=== PATIENT | male | born 1950 | race Caucasian/White ===

== ENCOUNTER → 2016-09-04 | Outpatient (CLI) | payer OTHER ==
[~2016-09-04] MED LIST: GADOBUTROL 10 ML VIAL IVP ONE
== END ==
LOC: FIMAGING 07:07
PROVIDERS: ATTEND Internal Medicine Hematology & Oncology
DX: Z12.89 Encounter for screening for malignant neoplasm of other sites (principal); Z85.07 Personal history of malignant neoplasm of pancreas; Z85.820 Personal history of malignant melanoma of skin
CPT/HCPCS: 70553; A9585

== ENCOUNTER → 2016-10-20 | Outpatient (CLI) | payer OTHER | LOC: FIMAGING 11:02 | PROVIDERS: ATTEND Family Medicine | DX: R05 Cough (principal); Q25.46 Tortuous aortic arch ==

== ENCOUNTER → 2016-11-17 | Outpatient (CLI) | payer OTHER | LOC: FIMAGING 06:49 | PROVIDERS: ATTEND Internal Medicine Hematology & Oncology | DX: R93.2 Abnormal findings on diagnostic imaging of liver and biliary tract (principal); I81 Portal vein thrombosis; C25.9 Malignant neoplasm of pancreas, unspecified; Z98.890 Other specified postprocedural states | CPT/HCPCS: 74183; A9585 ==

== ENCOUNTER → 2017-01-05 | Outpatient (CLI) | payer OTHER | LOC: CIMAGING 12:32 | PROVIDERS: ATTEND Nurse Practitioner | DX: R10.12 Left upper quadrant pain (principal); R14.0 Abdominal distension (gaseous); C25.9 Malignant neoplasm of pancreas, unspecified | CPT/HCPCS: 76705-PO ==

== ENCOUNTER → 2017-12-01 | Outpatient (CLI) | payer OTHER | LOC: FLAB 11:18 | PROVIDERS: ATTEND Surgery | DX: Z45.89 Encounter for adjustment and management of other implanted devices (principal) ==

== ENCOUNTER 2018-02-15 12:41 | Outpatient (CLI) | payer OTHER ==
[2018-02-15] MEDS ORDERED: diphenhydrAMINE 25 MG CAP PO ONE (13:30)
[2018-02-15] MEDS ORDERED: ACETAMINOPHEN 325 MG TAB PO ONE (13:30)
== END 2018-02-15 14:38 | disposition home or self-care (01) ==
LOC: FOBOP 12:41
PROVIDERS: ATTEND Internal Medicine Hematology & Oncology
PROC: 30233P1 Transfusion of Nonautologous Frozen Red Cells into Peripheral Vein, Percutaneous Approach (ICD-10-PCS; principal; 2018-02-15)
DX: C25.9 Malignant neoplasm of pancreas, unspecified (principal)
CPT/HCPCS: 36430; P9016

== ENCOUNTER → 2018-06-16 | Outpatient (CLI) | payer OTHER ==
[~2018-06-16] MED LIST changes: -GADOBUTROL 10 ML VIAL IVP ONE; +LIDOCAINE 1% 300 MG/30 ML SDV ONE
== END ==
LOC: FIMAGING 09:38
PROVIDERS: ATTEND Internal Medicine Hematology & Oncology
PROC: 0W9G3ZZ Drainage of Peritoneal Cavity, Percutaneous Approach (ICD-10-PCS; principal; 2018-06-16)
DX: R18.0 Malignant ascites (principal); C25.9 Malignant neoplasm of pancreas, unspecified

== ENCOUNTER → 2018-06-24 | Outpatient (CLI) | payer OTHER | LOC: FIMAGING 12:12 | PROVIDERS: ATTEND Nurse Practitioner | PROC: 0D9W3ZZ Drainage of Peritoneum, Percutaneous Approach (ICD-10-PCS; principal; 2018-06-24) | DX: R18.8 Other ascites (principal); Z85.07 Personal history of malignant neoplasm of pancreas ==

== ENCOUNTER → 2018-06-30 | Outpatient (CLI) | payer OTHER | LOC: FIMAGING 13:32 | PROVIDERS: ATTEND Internal Medicine Hematology & Oncology | PROC: 0W9G3ZZ Drainage of Peritoneal Cavity, Percutaneous Approach (ICD-10-PCS; principal; 2018-06-30) | DX: R18.0 Malignant ascites (principal); C25.0 Malignant neoplasm of head of pancreas ==

== ENCOUNTER 2018-07-12 13:05 | Day surgery (SDC) | payer OTHER ==
[2018-07-12] MEDS ORDERED: ceFAZolin 2 GM/DEXTROSE 100 ML IV ONE (13:28)
[2018-07-12] MEDS ORDERED: fentaNYL 100 MCG/2 ML INJ IVP PRN (13:28)
[2018-07-12] MEDS ORDERED: MIDAZOLAM 2 MG/2 ML VIAL IVP PRN (13:28)
[2018-07-12] MEDS ORDERED: NALOXONE HCL 0.4 MG/ML INJ IVP PRN (13:28)
[2018-07-12] MEDS ORDERED: FLUMAZENIL 0.5 MG/5 ML MDV IVP PRN (13:28)
[2018-07-12] MEDS ORDERED: MEPERIDINE 25 MG/ML SYR IVP PRN (13:28)
[2018-07-12] MEDS ORDERED: NS 1,000 ML IV SCH (13:30)
--- NOTE | 2018-07-12 14:00 | PDPROPOC ---
Sedation Plan of Care ASA Classification: ASA 3 Mallampati Score: Class 2 Mallampati Reference Image:
--- NOTE | 2018-07-12 14:00 | PDRADPRE ---
Radiology History & Physical Indication for procedure: other (ascites) Home medications: Ascorbic Acid [Vitamin C 500 mg (OTC)] 1,000 mg PO BID 07/11/12 [Last Taken 08:00] Cholecalciferol Vit D3 [Vitamin D3 1000 units (OTC)] 1,000 units PO DAILY [Last Taken 02/15/18 08:00] Herbals/Supplements -Info Only 1 each PO BID 07/11/12 [Last Taken 02/15/18] Ibuprofen [Advil] 400 mg PO BID 07/11/12 [Last Taken 07/10/12] Magnesium Oxide [Magnesium Oxide 400 mg (OTC)] 400 mg PO BID 07/11/12 [Last Taken 02/15/18 08:00] Multivitamins [Multivitamin (OTC)] 1 each PO BID 07/11/12 [Last Taken 02/15/18 08:00] Amo-3 Fatty Acids [Fish Oil 1000 mg (OTC)] 2,000 mg PO BID 07/11/12 [Last Taken 07/08/12] Pharmacy Completed 07/11/12 07/11/12 [Last Taken 07/11/12] Vitamin B Complex [Vitamin B Complex (OTC)] 1 each PO DAILY 07/11/12 [Last Taken 02/15/18 08:00] Vitamin E [Vitamin E 400 units (OTC)] 400 unit PO BID 07/11/12 [Last Taken 02/15 08:00] Nichole Richardson 36,000 Units Capsule 72,000 units PO TIDMEAL 02/15/18 [Last Taken 02/15 08:00] Flaxseed Oil [Flaxseed] 1,400 mg PO BID 02/15/18 [Last Taken 02/15/18 08:00] Herbals/Supplements -Info Only 02/15/18 [Last Taken 02/11/18 08:00] Herbals/Supplements -Info Only 02/15/18 [Last Taken 02/14/18 21:00] Herbals/Supplements -Info Only 02/15/18 [Last Taken 02/15/18 08:00] Herbals/Supplements -Info Only 1 ea PO DAILY 02/15/18 [Last Taken 02/15/18 08:00 ] L. Acidophilus/Pectin, [place] [Acidophilus Probiotic Capsule] 1 each PO BID [Last Taken 02/15/18 08:00] LORazepam [Ativan (*)] 0.5 mg PO HS 02/15/18 [Last Taken 02/14/18 21:00] Lisinopril 20 mg PO DAILY 02/15/18 [Last Taken 02/14/18 21:00] Mirtazapine [Remeron soltab 15 mg (*)] 15 mg PO DAILY 02/15/18 [Last Taken 02/14 21:00] Ondansetron [Ondansetron Odt] 8 mg PO BID 02/15/18 [Last Taken 02/15/18 08:00] Pantoprazole Sodium 40 mg PO DAILY 02/15/18 [Last Taken 02/15/18 08:00] amLODIPine BESYLATE [Amlodipine Besylate] 5 mg PO DAILY 02/15/18 [Last Taken 08:00] fentaNYL [Fentanyl] 1 each TD 02/15/18 [Last Taken 02/13/18] novoLOG 02/15/18 [Last Taken 02/15/18] oxyCODONE HCL/ACETAMINOPHEN [Percocet 10-325 mg Tablet] 10 mg PO Q4H PRN [Last Taken 02/15/18 08:00] Allergies/Adverse Reactions: promethazine HCl [From Phenergan] Allergy (Mild, Verified 07/11/12 19:50) Other-Enter Comments Mental status: A&Ox3
[2018-07-12] MEDS ORDERED: IOPAMIDOL (ISOVUE-370) 150 ML BTL IV ONE (14:03)
[2018-07-12 14:30] LABS: INR 1.31 (0.83-1.16); PROTIME(PATIENT) 16.5 SEC (12.0-15.0)
[2018-07-12] MEDS ORDERED: MIDAZOLAM 2 MG/2 ML VIAL ONE (14:43)
[2018-07-12] MEDS ORDERED: fentaNYL 100 MCG/2 ML INJ ONE (14:43)
[2018-07-12] MEDS ORDERED: LIDOCAINE 1% 300 MG/30 ML SDV ONE (15:11)
[2018-07-12] MEDS ORDERED: ACETAMINOPHEN 325 MG TAB PO PRN (15:44)
[2018-07-12] MEDS ORDERED: ONDANSETRON 4 MG/2 ML VIAL IVP PRN (15:44)
--- NOTE | 2018-07-12 15:44 | PDRADPN ---
Radiology Procedure Note Date of Procedure: 07/12/18 Radiologist: Chano Argueta Anesthesia: IV Sedation Pre-op Diagnosis: malignant ascites Post-op Diagnosis: same Procedure: pleurX drain Inf/Abcess present in the surg proc area at time of surgery?: No
[2018-07-12 17:36] VITALS: BP 146/90
== END 2018-07-12 17:25 | disposition home or self-care (01) ==
LOC: FIMAGING 13:05
PROVIDERS: ATTEND Radiology Diagnostic Radiology
PROC: BW111ZZ Fluoroscopy of Abdomen and Pelvis using Low Osmolar Contrast (ICD-10-PCS; principal; 2018-07-12 15:49)
PROC: 0WHG33Z Insertion of Infusion Device into Peritoneal Cavity, Percutaneous Approach (ICD-10-PCS; principal; 2018-07-12 15:49)
PROC: BW40ZZZ Ultrasonography of Abdomen (ICD-10-PCS; principal; 2018-07-12 15:49)
DX: C25.0 Malignant neoplasm of head of pancreas (principal); R18.0 Malignant ascites; C79.9 Secondary malignant neoplasm of unspecified site
CPT/HCPCS: 49418; 76937; 99152; C1769; C2617; J0690; J1642; J2250; J3010; Q9967